=== PATIENT | male | born 1960 | race Caucasian/White ===

== ENCOUNTER 2020-08-20 19:06 | Inpatient (IN) | payer MEDICAID, OTHER ==
[~2020-08-20] VITALS: Ht 185.4 cm; Wt 102.2 kg
[2020-08-20 19:40] LABS: Basophils # (auto) 0 10 ^3/uL (0-0.2); Basophils % (auto) 0.3 % (0.0-2.0); Eosinophils # (auto) 0.1 10 ^3/uL (0-0.8); Eosinophils % (auto) 1.2 % (0.0-7.0); Hematocrit 40.3 % (41.0-53.0); Hemoglobin 13.1 g/dL (13.5-17.5); Lymphocytes # (auto) 1.2 10 ^3/uL (0.4-5.4); Lymphocytes % (auto) 9.8 % (10.0-50.0); Mean Corpuscular Hemoglobin 27.1 pg (28.0-32.0); Mean Corpuscular Hgb Conc. 32.4 g/dL (32.0-36.0); Mean Corpuscular Volume 83.5 fL (80.0-100.0); Monocytes % (auto) 8.4 % (0.0-12.0); Neutrophils # (auto) 9.5 10 ^3/uL (1.6-8.6); Neutrophils % (auto) 80.3 % (37.0-80.0); Nucleated Red Blood Cells % 0.1 %; Platelet Count (auto) 434 10^3/uL (140-450); Red Blood Cells 4.82 10^6/uL (4.5-5.90); Red Cell Distribution Width 14.6 % (11.8-14.3); White Blood Cell 11.9 10^3/uL (4.4-10.8)
[2020-08-20 19:54] LABS: Albumin 3.1 g/dL (3.4-5.0); BUN/Creatinine Ratio 11.5; Calcium 8.8 mg/dL (8.5-10.1); Potassium 4.5 mmol/L (3.5-5.1)
[2020-08-20 19:56] LABS: Bilirubin, Total 0.3 mg/dL (0.2-1.0); Total Protein 9.3 g/dL (6.4-8.2)
[2020-08-20 20:04] LABS: Urine Bacteria MANY /hpf (None Seen); Urine Blood Negative /uL (Negative); Urine Mucus FEW (None Seen); Urine Specific Gravity 1.028 (1.001-1.035); Urine Sperm PRESENT /hpf (None Seen); Urine WBC 171 /hpf (0 - 3)
[2020-08-20] MEDS ORDERED: MORPHINE SULFATE 4 MG/ML SYR/VIAL IV ONE (21:45)
[2020-08-20] MEDS ORDERED: ONDANSETRON HCL 4 MG/2 ML VIAL IV ONE (21:45)
[2020-08-21] MEDS ORDERED: cefTRIAXone 1GM/50ML D5W 50 ML IV ONE (01:00)
[2020-08-21 02:12] LABS: Lactic Acid w/Reflex 2.1 mmol/L (0.4-2.0)
[2020-08-21] MEDS ORDERED: VANCOMYCIN 1GM/250ML 250 ML IV ONE (04:00)
[2020-08-21] MEDS ORDERED: hydrOXYzine 25 MG TAB or CAP PO ONE (05:15)
[2020-08-21] MEDS ORDERED: NITROGLYCERIN 0.4 MG SL TAB SL PRN (05:45)
[2020-08-21] MEDS ORDERED: MORPHINE SULF INJ 2 MG/ML SYRINGE 1ML IV PRN (05:45)
[2020-08-21] MEDS ORDERED: SODIUM CHLORIDE 0.9% 2,000 ML IV ONE (05:45)
[2020-08-21] MEDS ORDERED: SODIUM CHLORIDE 0.9% 1,000 ML IV ONE (05:45)
[2020-08-21] MEDS: CLINDAMYCIN 600MG IV 50 ML IV SCH ×3 (06:00→23:17)
[2020-08-21 08:29] LABS: Potassium 3.8 mmol/L (3.5-5.1)
[2020-08-21 08:33] LABS: BUN/Creatinine Ratio 17.2; Calcium 7.8 mg/dL (8.5-10.1)
[2020-08-21] MEDS: levoFLOXacin 500MG 100 ML IV SCH (10:10)
[2020-08-21 11:21] LABS: Basophils # (auto) 0 10 ^3/uL (0-0.2); Basophils % (auto) 0.4 % (0.0-2.0); Eosinophils # (auto) 0.2 10 ^3/uL (0-0.8); Eosinophils % (auto) 2.3 % (0.0-7.0); Hematocrit 34.6 % (41.0-53.0); Hemoglobin 11.2 g/dL (13.5-17.5); Lymphocytes % (auto) 11.6 % (10.0-50.0); Mean Corpuscular Hgb Conc. 32.4 g/dL (32.0-36.0); Mean Corpuscular Volume 83.4 fL (80.0-100.0); Monocytes # (auto) 0.9 10 ^3/uL (0-1.3); Monocytes % (auto) 9.8 % (0.0-12.0); Neutrophils # (auto) 6.6 10 ^3/uL (1.6-8.6); Neutrophils % (auto) 75.9 % (37.0-80.0); Nucleated Red Blood Cells % 0.2 %; Platelet Count (auto) 347 10^3/uL (140-450); Red Blood Cells 4.14 10^6/uL (4.5-5.90); Red Cell Distribution Width 14.4 % (11.8-14.3); White Blood Cell 8.7 10^3/uL (4.4-10.8)
[2020-08-21 12:30] VITALS: BP 113/64
[2020-08-21 13:00] VITALS: BP 113/64
[2020-08-21] MEDS: HYDROcodone-ACET 5/325MG TAB PO PRN ×2 (13:35→19:54)
[2020-08-21 17:00] VITALS: BP 111/68
[2020-08-21 22:00] VITALS: BP 118/72
[2020-08-22] MEDS: HYDROcodone-ACET 5/325MG TAB PO PRN (04:42)
[2020-08-22] MEDS: CLINDAMYCIN 600MG IV 50 ML IV SCH (04:42)
[2020-08-22 05:00] VITALS: BP 106/60
[2020-08-22 07:44] LABS: Basophils # (auto) 0 10 ^3/uL (0-0.2); Basophils % (auto) 0.6 % (0.0-2.0); Eosinophils # (auto) 0.3 10 ^3/uL (0-0.8); Eosinophils % (auto) 4.3 % (0.0-7.0); Hematocrit 40.3 % (41.0-53.0); Hemoglobin 13.4 g/dL (13.5-17.5); Lymphocytes # (auto) 0.7 10 ^3/uL (0.4-5.4); Lymphocytes % (auto) 9.7 % (10.0-50.0); Mean Corpuscular Hemoglobin 27.9 pg (28.0-32.0); Mean Corpuscular Hgb Conc. 33.4 g/dL (32.0-36.0); Mean Corpuscular Volume 83.7 fL (80.0-100.0); Monocytes # (auto) 0.8 10 ^3/uL (0-1.3); Monocytes % (auto) 10.5 % (0.0-12.0); Neutrophils # (auto) 5.6 10 ^3/uL (1.6-8.6); Neutrophils % (auto) 74.9 % (37.0-80.0); Nucleated Red Blood Cells % 0.1 %; Platelet Count (auto) 351 10^3/uL (140-450); Red Blood Cells 4.81 10^6/uL (4.5-5.90); Red Cell Distribution Width 14.6 % (11.8-14.3); White Blood Cell 7.4 10^3/uL (4.4-10.8)
[2020-08-22 07:55] LABS: Calcium 8.6 mg/dL (8.5-10.1); Potassium 4.6 mmol/L (3.5-5.1)
[2020-08-22 07:57] LABS: BUN/Creatinine Ratio 19.2
[2020-08-22 09:00] VITALS: BP 95/62
[2020-08-22] MEDS: levoFLOXacin 500MG 100 ML IV SCH (09:55)
[2020-08-22] MEDS ORDERED: LEVO500T31 PO (11:37)
[2020-08-22] MEDS ORDERED: CLIN300C8 PO (11:37)
[2020-08-22 13:00] VITALS: BP 127/74
[2020-08-22] MEDS ORDERED: LEVOTHYROXINE SODIUM 100 MCG TAB PO ONE (14:00)
[2020-08-22] MEDS: CLINDAMYCIN HCL 150 MG CAP PO SCH ×2 (14:40→21:04)
[2020-08-22 16:55] VITALS: BP 127/83
[2020-08-22 21:33] VITALS: BP 122/69
[2020-08-23 04:55] VITALS: BP 132/92
[2020-08-23] MEDS: CLINDAMYCIN HCL 150 MG CAP PO SCH ×2 (06:16→14:30)
[2020-08-23 07:35] LABS: Basophils # (auto) 0 10 ^3/uL (0-0.2); Basophils % (auto) 0.4 % (0.0-2.0); Eosinophils # (auto) 0.2 10 ^3/uL (0-0.8); Eosinophils % (auto) 2.8 % (0.0-7.0); Hematocrit 41.3 % (41.0-53.0); Hemoglobin 13.7 g/dL (13.5-17.5); Lymphocytes # (auto) 0.7 10 ^3/uL (0.4-5.4); Lymphocytes % (auto) 8.8 % (10.0-50.0); Mean Corpuscular Hemoglobin 27.5 pg (28.0-32.0); Mean Corpuscular Hgb Conc. 33.2 g/dL (32.0-36.0); Mean Corpuscular Volume 82.9 fL (80.0-100.0); Monocytes # (auto) 0.7 10 ^3/uL (0-1.3); Monocytes % (auto) 8.7 % (0.0-12.0); Neutrophils # (auto) 6.6 10 ^3/uL (1.6-8.6); Neutrophils % (auto) 79.3 % (37.0-80.0); Nucleated Red Blood Cells % 0.3 %; Platelet Count (auto) 436 10^3/uL (140-450); Red Blood Cells 4.99 10^6/uL (4.5-5.90); Red Cell Distribution Width 14.7 % (11.8-14.3); White Blood Cell 8.3 10^3/uL (4.4-10.8)
[2020-08-23 07:42] LABS: Calcium 9.1 mg/dL (8.5-10.1); Potassium 4.4 mmol/L (3.5-5.1)
[2020-08-23 09:00] VITALS: BP 143/87
[2020-08-23] MEDS ORDERED: levoFLOXacin 500 MG TAB PO SCH (10:00)
[2020-08-23 12:55] VITALS: BP 143/87
[2020-08-23 13:00] VITALS: BP 123/70
[2020-08-23 17:00] VITALS: BP 130/82
== END 2020-08-23 21:35 | DRG 197 ==
LOC: ER 19:06 → OVERFLOW 08-21 05:36 → CENTRAL 08-21 11:26
PROVIDERS: ADMIT Internal Medicine; ATTEND Internal Medicine
DX: I87.2 Venous insufficiency (chronic) (peripheral) (principal); K76.0 Fatty (change of) liver, not elsewhere classified; F17.210 Nicotine dependence, cigarettes, uncomplicated; Z20.822 Contact with and (suspected) exposure to COVID-19; R59.0 Localized enlarged lymph nodes; K43.9 Ventral hernia without obstruction or gangrene; N39.0 Urinary tract infection, site not specified; K40.20 Bilateral inguinal hernia, without obstruction or gangrene, not specified as recurrent; N40.0 Benign prostatic hyperplasia without lower urinary tract symptoms; Z59.0 Homelessness
CPT/HCPCS: 36415; 73700; 74176; 80048; 80053; 81001; 83605; 85025; 87040; 87077; 87086; 87426; 93970; 96365; 96367; 96375; G0378; J0696; J1956; J2405; J3490